=== PATIENT | female | born 1950 | race Two or more races ===

== ENCOUNTER 2023-12-23 19:18 | Emergency (ER) | payer OTHER ==
[~2023-12-23] VITALS: Ht 160 cm; Wt 90.7 kg
[2023-12-23] MEDS ORDERED: TELMISARTAN20 MG PO (19:33)
[2023-12-23] MEDS ORDERED: OMEPRAZOLE20 MG PO (19:33)
[2023-12-23] MEDS ORDERED: ATORVASTATIN CA40 MG PO (19:33)
[2023-12-23] MEDS ORDERED: TRIAMTERENE-HC1 EAC1 PO (19:33)
[2023-12-23] MEDS ORDERED: LEVETIRACETAM500 MG PO (19:33)
[2023-12-23] MEDS ORDERED: LIDOCAINE HCL 1% 10ML VIAL IJ ONE (20:00)
[2023-12-23] MEDS ORDERED: CEFTRIAXONE SODIUM 1,000 MG VIAL IM ONE (22:15)
[2023-12-23] MEDS ORDERED: KETOROLAC TROMETHAMINE 30 MG VIAL IM ONE (22:15)
[2023-12-23] MEDS ORDERED: TETANUS & DIPHTHERIA TOX,ADULT 0.5 ML VIAL IM ONE (22:15)
== END 2023-12-23 22:52 ==
LOC: ER 19:18
DX: S01.511A Laceration without foreign body of lip, initial encounter (principal); W19.XXXA Unspecified fall, initial encounter; Y93.89 Activity, other specified; Y92.59 Other trade areas as the place of occurrence of the external cause; Y99.8 Other external cause status; I10 Essential (primary) hypertension
CPT/HCPCS: 12013; 70450; 72100; 72125; 90471; 90714; 96372; 99284; J0696; J1670; J1885